=== PATIENT | male | born 1965 | race Caucasian/White ===

== ENCOUNTER 2022-01-10 09:06 | Day surgery (SDC) | payer OTHER ==
[2022-01-09 14:01] LABS: COVID AG,FIA SOURCE NASOPHARYNGEAL
[~2022-01-10] VITALS: Ht 167.6 cm; Wt 54.5 kg
[~2022-01-10 09:06] MED LIST: ACET-66 PO; ALBU8HFA IH; AMLO10TA55 PO; DIVA-112 PO; DOCU100C33 PO; FINA-27 PO; FLUO-177 PO; FLUT1AER5 IH; FOLI-130 PO; GABA-1181 PO; IPRAHFA IH; LANS30CA55 PO; LEVO50 PO; LIB25 PO; LISI-894 PO; MORP15TA9 PO; MULT-660 PO; PROM50TA3 PO; SODIUM CHLORIDE 0.9% 1,000 ML IV ONE; TAMS-13 PO; THIA100T92 PO; TRAZ-257 PO
[2022-01-10] MEDS ORDERED: SODIUM CHLORIDE 0.9% 1,000 ML ONE (09:59)
[2022-01-10] MEDS ORDERED: LIDOCAINE/PF 2% 5 ML VIAL IM ONE (12:00)
[2022-01-10] MEDS ORDERED: PROPOFOL 1% 20 ML VIAL IVP ONE (12:00)
[2022-01-10] MEDS ORDERED: OXYGEN THERAPY IH SCH (20:00)
== END 2022-01-10 12:20 | disposition home or self-care (01) ==
LOC: SURGERY 09:06
PROVIDERS: ATTEND Specialist
DX: R10.9 Unspecified abdominal pain (principal); R11.0 Nausea; K22.70 Barrett's esophagus without dysplasia; K29.60 Other gastritis without bleeding; K44.9 Diaphragmatic hernia without obstruction or gangrene; B18.2 Chronic viral hepatitis C; I10 Essential (primary) hypertension; F32.A Depression, unspecified; F17.210 Nicotine dependence, cigarettes, uncomplicated; Z20.822 Contact with and (suspected) exposure to COVID-19; Z79.899 Other long term (current) drug therapy; Z98.890 Other specified postprocedural states; Z80.9 Family history of malignant neoplasm, unspecified
CPT/HCPCS: 87426; 43239; 88305; 88312; 88313; C9803; C1769; J2704; J3490; J7030